=== PATIENT | female | born 2000 | race Caucasian/White ===

== ENCOUNTER 2023-03-20 10:47 | Emergency (ER) | payer MEDICAID ==
[2023-03-20] MEDS ORDERED: Phenergan 25 MG INJ*** 25 MG in Sodium Chloride 0.9% 100 ML IV ONE (11:20)
[2023-03-20] MEDS ORDERED: Sodium Chloride 0.9% 1000 ML 1,000 ML ONE (11:23)
[2023-03-20] MEDS ORDERED: Sodium Chloride 0.9% 1000 ML 1,000 ML IV STA (11:23)
[2023-03-20] MEDS ORDERED: Sodium Chloride 0.9% 100 ML ONE (11:23)
[2023-03-20] MEDS ORDERED: Phenergan 25 MG INJ ONE (11:23)
--- NOTE | 2023-03-20 11:35 | ERPHSYRPT ---
- History of Present Illness Historian: patient, other (Mother) Exam Limitations: no limitations Patient Subjective Stated Complaint: Pt reports she is 10 weeks and 2 days ; has been experiencing nausea/vomiting for approx 4 weeks; noticed urine has been darker so she called her OB's office, Dr Mcmullen who instructed her to come to ED. Complains of some upper abdominal cramping. Reports she has been prescribed zofran which helped for a couple days but has not been helping as of recently. Triage Nursing Assessment: Pt alert and oriented x3. No apparent respiratory distress. Skin pale/warm/dry. Carrying bucket for vomiting but no vomiting at this time. Accompanied by pts mother. Ambulated to ED cot without difficulty. Urine dark in color. Physician History: 23 yo WF who is 10 wks ([id number]) w N/V x 1 month. Pt is taking Zofran at home wo relief. She denies abdominal/pelvic pain/vaginal bleeding/fever/dysuria/hematuria. Timing/Duration: other (1month) Activities at Onset: rest Quality: other (No pain) Modifying Factors: Improves With: nothing Associated Symptoms: denies symptoms, nausea, vomiting Previous symptoms: same symptoms as today Allergies/Adverse Reactions: codeine Adverse Reaction (Severe, Verified 03/20/23 11:12) Vomiting Home Medications: Vit No.179/Iron/Folic [ Tablet] 1 tab PO DAILY 03/20/23 [History] Hx Tetanus, Diphtheria Vaccination/Date Given: No Hx Influenza Vaccination/Date Given: Yes Hx Pneumococcal Vaccination/Date Given: No Travel Risk - International Travel Have you traveled outside of the country in past 3 weeks: No - Coronavirus Screening Are you exhibiting any of the following symptoms?: Yes Symptoms: Vomiting/Diarrhea - Vaccine Status Have you recieved a Covid-19 vaccination: Yes Surgery Manager: [place] - Vaccination Dates Date of 2cond Vaccination (if applicable): ? - Review of Systems Constitutional: No Symptoms Eyes: No Symptoms Ears, Nose, & Throat: No Symptoms Respiratory: No Symptoms Cardiac: No Symptoms Abdominal/Gastrointestinal: No Symptoms Musculoskeletal: No Symptoms Skin: No Symptoms Neurological: No Symptoms Psychological: No Symptoms Endocrine: No Symptoms Hematologic/Lymphatic: No Symptoms Immunological/Allergic: No Symptoms - Past Medical History Pertinent Past Medical History: No - Past Surgical History Past Surgical History: Yes Other Surgical History: wisdom teeth removal - Social History Smoking Status: Never smoker Exposure to second hand smoke: No Drug Use: none Patient Lives Alone: No - Female History Hx Now: Yes Gestational Age: 10.2 - Nursing Vital Signs Nursing Vital Signs: Initial Vital Signs Temperature 97.7 F 03/20/23 11:00 Pulse Rate 102 H 03/20/23 11:00 Respiratory Rate 16 03/20/23 11:00 Blood Pressure 147/92 03/20/23 11:00 O2 Sat by Pulse Oximetry 99 03/20/23 11:00 Pain Scale Pain Intensity 4 Tachy/hypertensive - Physical Exam General Appearance: no apparent distress Eye Exam: PERRL/EOMI, eyes nml inspection Ears, Nose, Throat Exam: normal ENT inspection, TMs normal, pharynx normal, moist mucous membranes Neck Exam: normal inspection, non-tender, supple, full range of motion, No meningismus, No mass, No Brudzinski, No Kernig's Respiratory Exam: normal breath sounds, lungs clear, airway intact Cardiovascular Exam: tachycardia, capillary refill <2 sec, No murmur Gastrointestinal/Abdomen Exam: soft, normal bowel sounds, No tenderness Back Exam: normal inspection, normal range of motion, No CVA tenderness, No vertebral tenderness Extremity Exam: normal inspection, normal range of motion Neurologic Exam: alert, oriented x 3, cooperative, dietary manager II-XII nml as tested, normal mood/affect, nml cerebellar function, nml station & gait, sensation nml Skin Exam: normal color, warm, dry, No rash Lymphatic Exam: No adenopathy SpO2 Interpretation: normal SpO2: 99 O2 Delivery: Room Air - Course Nursing assessment & vital signs reviewed: Yes Ordered Tests: Active Orders 24 hr Category Date Time Status IV Insertion STAT Care 03/20/23 11:21 Completed CULTURE,URINE Stat Lab 03/20/23 11:36 Received UA W/RFX UR CULTURE Stat Lab 03/20/23 11:36 Completed Transfer Order Routine Transfer 03/20/23 Ordered Medication Summary Discontinued Medications Generic Name Dose Route Start Last Admin Trade Name Freq PRN Reason Stop Dose Admin Promethazine HCl 25 mg/ Sodium 101 mls @ 200 mls/hr 03/20/23 11:20 03/20/23 11:27 Chloride IV 03/20/23 11:50 200 mls/hr ONCE ONE Administration Sodium Chloride 1,000 mls @ 999 mls/hr 03/20/23 11:23 03/20/23 11:27 Sodium Chloride 0.9% 1000 Ml IV 03/20/23 12:23 999 mls/hr .Q1H1M STA Administration Sodium Chloride Confirm 03/20/23 11:23 Sodium Chloride 0.9% Administered 03/20/23 11:24 Dose 100 mls @ ud .ROUTE .STK-MED ONE Sodium Chloride Confirm 03/20/23 11:23 Sodium Chloride 0.9% 1000 Ml Administered 03/20/23 11:24 Dose 1,000 mls @ ud .ROUTE .STK-MED ONE Promethazine HCl Confirm 03/20/23 11:23 Promethazine Hcl 25 Mg/Ml Vial Administered 03/20/23 11:24 Dose 25 mg .ROUTE .STK-MED ONE Lab/Rad Data: Laboratory Results 03/20/23 Range/Units 11:36 Urine Color Dark Yellow A (Yellow) Urine Appearance Cloudy A (Clear) Urine pH 5.5 (4.6-8.0) Ur Specific [place] >=1.030 A (1.005-1.030) Urine Protein 100 A (Negative) Urine Glucose (UA) Negative (Negative) mg/dL Urine Ketones >=160 A (Negative) Urine Blood Negative (Negative) Urine Nitrite Negative (Negative) Urine Bilirubin Small A (Negative) Urine Urobilinogen 1.0 A (0.2) mg/dL Ur Leukocyte Esterase Moderate A (Negative) U Hyaline Cast (Auto) 6-10 A (0-2) /LPF Urine Microscopic RBC 0-2 (0-5) /HPF Urine Microscopic WBC 21-50 A (0-5) /HPF Ur Epithelial Cells Many A (None Seen) /HPF Urine Bacteria Few A (None Seen) /HPF Urine Culture Reflexed YES (NO) - Progress Progress Note: 03/20/23 14:58 Nursing note and vital signs reviewed No food or housing insecurities noted Additional history per mother UA result reviewed and shared w pt/mother 1L NS bolus/25mg IV phenergan drip No active vomiting in ER 03/20/23 15:00 FHT acceptable Counseled pt/family regarding: lab results, diagnosis, need for follow-up Medical Desision Making - Independent Historian Additional History obtained from: Mother - Diagnostic Testing Diagnostic test were ordered, analyzed, and reviewed by me: Yes - Risk of complications The pt has a mod risk of morbidity or mortality based on: Need for prescription drug management - Departure Departure Disposition: Home Clinical Impression: Hyperemesis gravidarum, UTI (urinary tract infection) Condition: Stable Critical Care Time: No Referrals: EDDI MCMULLEN MD [Primary Care Provider] - Follow up/PCP as directed Instructions: Urinary Tract Infection, Adult (DC), Hyperemesis Gravidarum (DC) Additional Instructions: Fluids Phenergan suppositories as needed for nausea/vomiting Start Macrobid twice a day for 5 days Follow up with your Ob FILIBERTO Return to ER as needed Prescriptions: Promethazine HCl 25 mg [Phenergan 25 mg] 25 mg RC Q4H PRN PRN #7 tablet PRN Reason: Nausea/Vomiting Nitrofurantoin Macro 100 mg [Macrobid 100MG Capsule] 100 mg PO BID 5 Days #10 cap
[2023-03-20 11:46] LABS: Appearance Cloudy (Clear); Bacteria Few /HPF (None Seen); Bilirubin Small (Negative); Blood Negative (Negative); Epithelial Cells Many /HPF (None Seen); Glucose, Urine Negative (Negative); Ketones >=160 (Negative); Leukocyte Esterase Moderate (Negative); Nitrite Negative (Negative); Ph 5.5 (4.6-8.0); Protein,Urine Dip 100 (Negative); RBC 0-2 /HPF (0-5); Specific Gravity >=1.030 (1.005-1.030); WBC 21-50 /HPF (0-5)
[2023-03-20 11:47] LABS: ADD URINE CULTURE? YES (NO)
[2023-03-20 12:21] VITALS: BP 127/68; PULSE 84
[2023-03-20 15:00] VITALS: O2SAT 99
== END 2023-03-20 12:26 | disposition home or self-care (01) ==
LOC: ED 10:47
DX: O21.0 Mild hyperemesis gravidarum (principal); Z3A.10 10 weeks gestation of pregnancy; O23.41 Unspecified infection of urinary tract in pregnancy, first trimester; N39.0 Urinary tract infection, site not specified
CPT/HCPCS: 36000; 81001; 87086; 96360; 96374; 99284; J2550